=== PATIENT | female | born 1960 | race Caucasian/White ===

== ENCOUNTER 2017-03-13 12:22 | Day surgery (SDC) | payer OTHER ==
[~2017-03-13] VITALS: Ht 152.4 cm; Wt 54.4 kg
[~2017-03-13 12:22] MED LIST: ACETTAB3 PO; CHELATED MAGNE100 MG PO; E400400 UNIT PO; ESTRADIOL0.05 MG TD; FIORICET PO; L-LYSINE1000 M1 PO; MULTIVITAMI1 PO; PROAIR HFA108 MCG/AC; PROMETRIUM100 MG OR; PROMETRIUM100 MG PO; TIZANIDINE HCL4 M1 PO; TYLENOL # 31 TA1 PO; VITAMIN C100 M1 PO; VITAMIN D1000 UNI1 PO; ZPAK PO; tylenol#3 PO
[2017-03-13 15:55] VITALS: BP 110/69
== END 2017-03-13 16:12 | disposition home or self-care (01) | DRG 951 ==
LOC: ENDO 12:22
PROVIDERS: ATTEND Internal Medicine Gastroenterology
PROC: 0DBN8ZX Excision of Sigmoid Colon, Via Natural or Artificial Opening Endoscopic, Diagnostic (ICD-10-PCS; principal; 2017-03-13)
DX: Z12.11 Encounter for screening for malignant neoplasm of colon (principal); E03.9 Hypothyroidism, unspecified; K63.5 Polyp of colon; K64.4 Residual hemorrhoidal skin tags; K64.8 Other hemorrhoids; J45.909 Unspecified asthma, uncomplicated